=== PATIENT | male | born 1965 | race Caucasian/White ===

== ENCOUNTER 2016-12-08 09:45 | Emergency (ER) | payer MEDICAID ==
[~2016-12-08] VITALS: Ht 188 cm; Wt 95.2 kg
[2016-12-08] MEDS ORDERED: ACETAMINOPHEN ES 500 MG TABLET PO ONE (10:00)
[2016-12-08] MEDS ORDERED: ACETAMINOPHEN ES 500 MG TABLET ONE (10:10)
--- NOTE | 2016-12-08 10:45 | NUR ---
Patient is resting comfortably in bed with eyes closed, pending CT scan results, no acute change in condition seen
[2016-12-08] MEDS ORDERED: TETRACAINE HCL 0.5% OPHT DROP 2 ML BOTTLE OP ONE (11:15)
[2016-12-08] MEDS ORDERED: FLUORESCEIN SODIUM 1 MG STRIP ONE (11:25)
[2016-12-08] MEDS ORDERED: TETRACAINE HCL 0.5% OPHT DROP 2 ML BOTTLE ONE (11:25)
--- NOTE | 2016-12-08 11:55 | NUR ---
Patient discharged to home in stable conditon. Written and verbal after care instructions given. Patient verbalizes understanding of instructions. Stressed follow up with pmd in 24-[address] Corona instructions. Pt ambulatory with steady gait, pt states his friend will drive him home.
[2016-12-08 11:57] VITALS: BP 127/74
== END 2016-12-08 11:58 | disposition home or self-care (01) ==
LOC: ER 09:45
DX: S02.31XA Fracture of orbital floor, right side, initial encounter for closed fracture (principal); S16.1XXA Strain of muscle, fascia and tendon at neck level, initial encounter; R51 Headache; V89.2XXA Person injured in unspecified motor-vehicle accident, traffic, initial encounter; Y93.89 Activity, other specified; Y99.8 Other external cause status; Y92.410 Unspecified street and highway as the place of occurrence of the external cause
CPT/HCPCS: 70450; 70486; A4663